=== PATIENT | male | born 1940 | race Caucasian/White ===

== ENCOUNTER 2017-08-10 16:56 | Inpatient (IN) | payer OTHER ==
[2017-08-10] VITALS (41 sets, daily range): BP systolic 66–144; BP diastolic 33–117
[~2017-08-10] VITALS: Ht 170.2 cm; Wt 64.0 kg
--- NOTE | ~2017-08-10 | EKG ---
[place] [address] [facility] [place] [address] ELECTROCARDIOGRAM REPORT Name: CRISTY REINA Room #: 240-P ADM IN M.R.#: [id number] Admission: 08/10/17 Attend Phys: Carlota Guzman MD Discharge: Date of : 38 Report #: [id number] THIS REPORT FOR: //name// [facility] ED Test Date: 2017-08-10 Test Time: 17:00:36 Pat Name: CRISTY REINA Department: Room: 240 Gender: M Touch Up Carver: YASMEEN : 1940 Requested By: Susannah Camejo Order Number: [id number] MD: Sami Martínez Measurements Intervals [place] Rate: 96 P: 0 CO: 59 QRS: 96 QRSD: 120 T: 269 QT: 445 QTc: 563 Interpretive Statements Ventricular-paced complexes Underlying rhythm is A. fib IVCD, consider atypical RBBB Nonspecific ST depression Compared to ECG 06/21/1990 16:41:00 ST (T wave) deviation now present Sinus rhythm no longer present Electronically Signed On 08-13-2017 12:16:01 CALENDERER by Sami Martínez [email or web address] <ELECTRONICALLY SIGNED> By: Sami Martínez MD 08/13/17 1216 1700 1700 Sami Martínez MD /EPI
--- NOTE | ~2017-08-10 | EKG ---
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 : 1940 Requested By: Susannah Camejo Order Number: [id number] MD: Sami Martínez Measurements Intervals [place] Rate: 156 P: 0 OK: 91 QRS: -54 QRSD: 185 T: 167 QT: 303 QTc: 488 Interpretive Statements Atrial fibrillation with rapid ventricular rate versus wide complex tachycardia right bundle branch block pattern Artifact in lead(s) I,III,aVR,aVL and baseline wander in lead(s) V5,V6 Compared to ECG 06/21/1990 16:41:00 Sinus rhythm no longer present Sinus arrhythmia no longer present Atrial abnormality no longer present T-wave abnormality no longer present Electronically Signed On 08-13-2017 12:18:20 MOLD MAKER APPRENTICE by Sami Martínez [email or web address] <ELECTRONICALLY SIGNED> By: Sami Martínez MD 08/13/17 1218 1746 1746 Sami Martínez MD /EPI
--- NOTE | ~2017-08-10 | H ---
[facility] [place] [address] HISTORY AND PHYSICAL Name: CRISTY REINA Room #: 240-P ADM IN M.R.#: [id number] Admission: 08/10/17 Attend Phys: Carlota Guzman MD Discharge: Date of : 39 Report #: [id number] THIS REPORT FOR: //name// CC: Carlota Guzman Greg Akkulugari DATE OF SERVICE: 08/10/2017 CHIEF COMPLAINT: Cardiac arrest outside of the hospital. HISTORY OF PRESENT ILLNESS: The patient is a 77-year-old man with a cardiac history, including history of coronary artery disease, status post CABG and cardiac stents, who apparently was at the group home. The patient became responsive earlier today. Code blue was called, and the patient had CPR, followed by defibrillation for ventricular fibrillation. The patient was given amiodarone. He was intubated other site. He was transferred here for further evaluation. The patient's blood pressure was 60 systolic on admission, before he received normal saline bolus. Currently, blood pressure is 100s. While in the Emergency Room, chest x-ray showed right perihilar infiltrate, as well as right lower lobe infiltrate, versus edema. White count is slightly elevated. INR is 9.1. The patient had a skin tear after chest compressions, and currently is bleeding. The patient is on Coumadin for chronic atrial fibrillation. PAST MEDICAL HISTORY: Coronary artery disease status post CABG, atrial fibrillation, status post pacemaker placement, history of colon cancer, no further details available. CURRENT MEDICATIONS: Per group home, the patient is on aspirin, Tylenol, Coumadin, theophylline, simvastatin, prednisone, potassium supplementation, omeprazole, metoprolol, [place], doxazosin, calcium carbonate. FAMILY HISTORY: Unable to obtain from the patient. Chart reviewed and not pertinent to the patient's current clinical condition. SOCIAL HISTORY: The patient is currently at the group home. Further details are not available. No smoking or drinking alcohol is reported. REVIEW OF SYSTEMS: Unable to obtain. The patient is currently intubated. PHYSICAL EXAMINATION: GENERAL: The patient is cachectic-appearing elderly man, who is intubated. He has spontaneous movements. He does not respond to his name. [address] [address] HISTORY AND PHYSICAL Name: CRISTY REINA Room #: [facility]note 2[facility] IN M.R.#: [id number] Admission: 08/10/17 Attend Phys: Carlota Guzman MD Discharge: Date of : 39 Report #: [id number] HEENT: Pupils are equal. Eye movements are present. JVD is not appreciated. NECK: The patient has no thyromegaly. CARDIOVASCULAR: The patient has distant S1 and S2. Heart rate is irregularly irregular. RESPIRATORY: The patient has diffusely coarse respiratory sounds. GASTROINTESTINAL: Abdomen is soft. The patient has PEG tube site, with minor drainage. Hepatomegaly or splenomegaly is not palpated. MUSCULOSKELETAL: The patient has 2+ pitting edema on lower extremities. No major joint deformities are appreciated. NEUROLOGIC: The patient is intubated, and severely lethargic, not responding to the painful stimuli. He has spontaneous movements present. SKIN: The patient has skin laceration of the chest and back, bleeding, from the chest compressions. He has multiple bruising on extremities. LABORATORY DATA: Electrolytes show sodium 146, potassium 1.7, chloride and bicarbonate are normal, creatinine 1.2, glucose 242, magnesium 1.6, calcium 6.8, troponin 1.13, BNP 6000, INR is 9.1. On CBC, white count is 12.5, hemoglobin is 7.9, hematocrit 25.8, platelets are 162. On ABG, pH is 7.449, pCO2 is 29, pO2 is 499. ASSESSMENT AND PLAN: 1. Cardiac arrest outside of the hospital. Status post defibrillation for ventricular fibrillation. Currently, the patient is in atrial fibrillation. He is intubated. Code ice to be initiated. Clearing Supervisor/critical care team and swing manager consultation is very much appreciated. 2. Coagulopathy due to Coumadin, the patient takes for atrial fibrillation. INR is 9.1. As noted, the patient is bleeding from skin laceration, that he sustained as a result of chest compressions. The patient is getting FFP, as well as vitamin K. CBC will be followed. Local skin care. 3. Respiratory failure. As noted, the patient is intubated. Management per sales coach. Help is appreciated. 4. Severe hypokalemia. The patient is getting IV potassium supplementation, that will be followed closely, and will be replaced as necessary. 5. Right lung infiltrate, likely pneumonia, aspiration versus healthcare associated. Broad spectrum antibiotics. 6. Sepsis due to above, with hypotension. Aggressive IV fluid hydration, blood cultures, and pressors if necessary. 7. Iatrogenic adrenal insufficiency. The patient's home medication list includes prednisone. Reason is unclear. This will be clarified later. In the meantime, the patient will be treated with stress doses of the steroids. 8. Elevated troponin, likely due to current illness. EKG shows no acute ST segment changes. Senior Planner is consulted. 9. Deep venous thrombosis prophylaxis and gastrointestinal prophylaxis. SCDs and famotidine, respectively. [facility] [address] [place] [address] HISTORY AND PHYSICAL Name: CRISTY REINA Room #: 240-P ADM IN M.R.#: [id number] Admission: 08/10/17 Attend Phys: Carlota Guzman MD Discharge: Date of : 39 Report #: [id number] I spent greater than 60 minutes in critical care. <ELECTRONICALLY SIGNED> By: Carlota Guzman MD 08/11/17 1604 1905 1919 Carlota Guzman MD /nt
--- NOTE | ~2017-08-10 | 2DMMODE ---
[facility] [address] [place] [address] 2 D/M-MODE ECHOCARDIOGRAM Name: CRISTY REINA Room #: 240-P [facility] IN .R.#: [id number] Admission: 08/10/17 Attend Phys: Carlota Guzman Discharge: Date of : 38 Date of Service: 08/11/17 0943 Report #: [id number] THIS REPORT FOR: //name// APPROVED REPORT Study performed: 08/11/2017 08:43:02 EXAM: Comprehensive 2D, Doppler, and color-flow Echocardiogram Patient Location: ICU Room #: 240 Status: routine BSA: 1.70 HR: 70 bpm BP: 98/69 mmHg Rhythm: Irregular Other Information Study Quality: Good/limited windows due to bandages Indications Status post cardiac arrest, mechanical aortic valve, CABG, pacemaker. 2D Dimensions RVDd: 39.07 mm LVEF(%): 15.20 (>50%) IVSd: 11.30 (7-11mm) LVOT Diam: 22.31 (18-24mm) LVDd: 53.86 mm PWd: 8.59 (7-11mm) LVDs: 50.15 (25-40mm) Aortic Root: 29.40 mm Head's LVEF: 15.20 % Volumes Left Atrial Volume (Systole) Single Plane 4CH: 137.67 mL Single Plane 2CH: 97.63 mL LA ESV Index: 79.00 mL/m2 Aortic Valve AoV Peak Aj.: 2.27 m/s AO Peak Gr.: 20.62 mmHg LVOT Max P.36 mmHg AO Mean Gr.: 13.42 mmHg AO V2 Mean: 1.77 m/s LVOT Max V: 0.76 m/s AO V2 VTI: 28.46 cm DOLLY Vmax: 1.31 cm2 [facility] [place] [address] [address] 2 D/M-MODE ECHOCARDIOGRAM Name: CRISTY REINA Room #: 240-[facility] IN .R.#: [id number] Admission: 08/10/17 Attend Phys: Carlota Guzman Discharge: Date of : 38 Date of Service: 08/11/17 0943 Report #: [id number] Mitral Valve MV Decel. Time: 156.32 ms MV E Max Aj.: 1.51 m/s Pulmonary Valve PV Peak Aj.: 0.59 m/s PV Peak Gr.: 1.41 mmHg Tricuspid Valve TR Peak Aj.: 2.73 m/s TR Peak Gr.: 29.87 mmHg Left Ventricle Left ventricle is dilated. There is normal left ventricular wall thickness. Left ventricular systolic function is moderate to severely decreased. Akinesis of base of inferior wall, mid-distal septum LVEF is 25-30%. This study is not technically sufficient to allow evaluation of the LV diastolic function. Right Ventricle The right ventricle is normal size. Right ventricle is hypokinetic. Atria Left atrium is dilated. Right atrium is dilated. Pacemaker lead is present in the right atrium. Aortic Valve Mechanical aortic valve is present. Peak pressure gradient of 19mmHg and mean pressure gradient of 13mmHg. Trace to mild aortic regurgitation. Mitral Valve Mitral valve leaflets are thickened. Severe mitral annular calcification. Moderate mitral regurgitation. Tricuspid Valve Moderate to severe tricuspid regurgitation. Estimated PAP is 30mmHg plus the right atrial pressure. Pulmonic Valve The pulmonary valve is normal in structure. Trace pulmonic regurgitation. Great Vessels The aortic root is normal in size. The ascending aorta is normal in [facility] [address] [place] [address] 2 D/M-MODE ECHOCARDIOGRAM Name: CRISTY REINA TESSY Room #: [address] [place] [address] IN ..#: [id number] Admission: 08/10/17 Attend Phys: Carlota Guzman Discharge: Date of : 38 Date of Service: 08/11/17 0943 Report #: [id number] size. IVC was not visualized. Pericardium There is no pericardial effusion. <Conclusion> Left ventricular systolic function is moderate to severely decreased. Akinesis of base of inferior wall, mid-distal septum LVEF is 25-30%. Both atria are dilated. Pacing wires in right heart Mechanical aortic valve is present. Peak pressure gradient of 19mmHg and mean pressure gradient of 13mmHg. Trace to mild aortic regurgitation. Mitral valve leaflets are thickened. Severe mitral annular calcification. Moderate mitral regurgitation. Severe tricuspid regurgitation. Estimated pulmonary artery pressure of 30mmHg plus the right atrial pressure. There is no pericardial effusion. <ELECTRONICALLY SIGNED> By: Brian Lu MD, [facility] 08/11/1743 2 Brian Lu MD, FAC /INF
--- NOTE | ~2017-08-10 | O ---
[facility] [place] [address] [address] [place] [address] OPERATIVE REPORT Name: CRISTY REINA Room #: 240-P [facility] IN M.R.#: [id number] Admission: 08/10/17 Attend Phys: Carlota Guzman MD Discharge: Date of : 39 Report #: [id number] THIS REPORT FOR: //name// CC: Carlota Guzman [facility] Akkulugari DATE OF SERVICE: 08/10/2017 CLINICAL HISTORY: A 77-year-old white male with cardiac arrest, now with profound hypotension. The patient is in need of a central line. PROCEDURE: Right femoral central line placed. DESCRIPTION OF PROCEDURE: Procedure was performed semi-urgently and under medical necessity. The right groin area was then cleansed with Betadine. I was able to feel the femoral pulse. There appeared to be a hard, tubular pulsatile mass, 1% lidocaine was used to locate the femoral vein next medial to the femoral pulse area. Then, an 18-gauge needle was then used to again locate the femoral vein. A guidewire was then placed through the needle. Needle was then withdrawn. A small blade was used for skin incision at the side of the guidewire. Then, a dilator was placed over the wire. The dilator was then removed. Then, a triple lumen was placed over the guidewire without difficulty. The 3 ports were then flushed with saline without difficulty. The right femoral area was then secured with 2-0 silk. Area was sterilely bandaged. No complications noted. <ELECTRONICALLY SIGNED> By: Juan José Gomez MD 08/11/17 1637 2305 2318 Juan José Gomez MD /nt
--- NOTE | ~2017-08-10 | HC ---
[facility] [place] [address] CONSULTATION Name: CRISTY REINA Room #: 240-P ADM IN M.R.#: [id number] Admission: 08/10/17 Attend Phys: Carlota Guzman MD Discharge: Date of : 39 Report #: [id number] THIS REPORT FOR: //name// CC: Carlota Martin TYPE OF REPORT: Infectious diseases consultation. REASON FOR CONSULTATION: I was asked to evaluate concerning Gram-positive bacteremia following out of hospital cardiac arrest. HISTORY OF PRESENT ILLNESS: The patient was a 77-year old with history of COPD, aortic valve replacement, atrial fibrillation with permanent pacemaker, coronary artery disease and anticoagulation. Has a history of colon cancer. He was residing at [facility]. Went into V-fib required resuscitation, was brought into the Emergency Room, intubated, now on pressors in the ICU, Levophed and norepinephrine and remains encephalopathic. He has had significant chest trauma from his resuscitation. Has previous gastrostomy tube, which was removed. 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 Still unclear to me why he was at [facility] other than just generalized debility. Blood cultures were drawn at admission showing gram-positive cocci. Further identification is pending. He has had minimal tracheal secretions. He has an indwelling Bustillos catheter with reasonable urine output. No reported diarrhea. REVIEW OF SYSTEMS: In addition to the above, he has a right IJ catheter in place. He has got a Port-A-Cath, longstanding, right chest; right femoral venous catheter in place; indwelling Bustillos catheter, oral intubation and multiple skin tears from his resuscitation. On an FiO2 of 40%. He has paced rhythm. ALLERGIES: PEMBROLIZUMAB. MEDICATIONS: As noted on his AUG, now on vancomycin and Zosyn. PAST MEDICAL HISTORY: Coronary artery bypass grafting, atrial fibrillation, sick sinus syndrome, permanent pacemaker placement, rheumatic fever, aortic valve disease, status post mechanical valve replacement, COPD, asthma, gastrocutaneous fistula, cholecystectomy and colon surgery for colon cancer. FAMILY HISTORY: Not available. SOCIAL HISTORY: Not available. PHYSICAL EXAMINATION: VITAL SIGNS: Afebrile, blood pressure adequate on 2 drips including Jose-Synephrine and Levophed and on FiO2 of 40%. GENERAL: He was encephalopathic but sedated on propofol. [facility] [address] [place] [address] CONSULTATION Name: CRISTY REINA Room #: 240-P [facility] IN M.R.#: [id number] Admission: 08/10/17 Attend Phys: Carlota Guzman MD Discharge: Date of : 39 Report #: [id number] HEENT: Eyes are unremarkable. He was pale. NECK: Supple. RESPIRATORY: He is breathing over the vent. Right IJ catheter site unremarkable. Right chest Port-A-Cath site unremarkable. Right femoral venous catheter site unremarkable had multiple skin tears to his anterior and posterior chest. Had crepitance to the right rib cage. Chest was coarse bilaterally. HEART: Regular, without murmur. ABDOMEN: Soft. 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 EXTREMITIES: A 2+ edema. Some mottling in his toes. Had effusions in both knees. LABORATORY STUDIES: Blood cultures showing Staph aureus, 2/2 cultures obtained. Presumptive methicillin-susceptible. Urine culture, no growth. Sputum culture pending. Sodium 142, potassium 3.3, bicarbonate of 19 and creatinine 1.4. AST 2302. Bilirubin normal. Alkaline phosphatase 185, ALT 1641, albumin 1.9 and lactate 6.8. INR 1.8. Hemoglobin 7.5; WBC 16.8; platelet count 152,000; 96% neutrophils and bands were initially 25% and now 0. MRSA screen negative. Urinalysis: Moderate wbc's, rbc's and few bacteria and moderate coarse granular casts. ABG on 40% FiO2 shows pO2 158, pCO2 of 27, pH 7.4 and lactate 5.6. RADIOLOGICAL DATA: Chest x-ray: Mild atelectasis in the lung bases with vascular congestion. IMPRESSION: A 77-year old with chronic obstructive pulmonary disease, cardiovascular disease, aortic valve replacement, fully anticoagulated with history of colon cancer. Unclear if he is without evidence of disease. Presents now with Staphylococcus aureus bacteremia, post-code from ventricular fibrillation with multisystem organ failure including encephalopathy, respiratory failure, possible non-Q-wave myocardial infarction with methicillin-susceptible Staphylococcus aureus bacteremia. Sources of his bacteremia would include central venous catheter versus possible endocarditis. 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 RECOMMENDATIONS: We will continue IV antibiotic therapy. Repeat his blood cultures. Check echocardiogram and continue full support pending further recommendations from family. <ELECTRONICALLY SIGNED> By: Chema Valerio MD 08/15/17 0844 0922 1027 Chema Valerio MD /nt
--- NOTE | ~2017-08-10 | HC ---
[facility] [place] [address] CONSULTATION Name: CRISTY REINA Room #: 240-P [facility] IN M.R.#: [id number] Admission: 08/10/17 Attend Phys: Carlota Guzman MD Discharge: Date of : 38 Report #: [id number] THIS REPORT FOR: //name// CC: Carlota Ambrosem Akkulugari DATE OF SERVICE: 08/10/2017 PULMONARY CONSULTATION REFERRAL PHYSICIAN: . REASON FOR REFERRAL: Acute hypoxic cardiac arrest. HISTORY OF PRESENT ILLNESS: The patient is a 77-year-old white male who was brought to the Emergency Room in apparent cardiac arrest. A pulmonary consultation was requested. The patient has an extensive medical history. He appears to have a history of aortic valve replacement, on chronic anticoagulation, atrial fibrillation, colon cancer, sick sinus syndrome, status post permanent pacemaker placement, seizure disorder, gastrocutaneous fistula, coronary artery undergoing 4-vessel bypass surgery, COPD, asthma, rheumatic fever along with failure to thrive. He was recently at [facility]. Earlier today, the patient was found to be unresponsive. CPR was given, 911 was called. When EMS arrived, the patient was found to be in ventricular fibrillation. He underwent cardioversion. Amiodarone along with epinephrine was given. The patient was also intubated en route. In the ER, the patient was hypotensive. Fluids were given along with vasopressors. Vital signs did improve. Cardiology has been consulted. At this time, no plans for intervention. He has been transferred to the ICU. While in the ICU, the patient became progressively hypotensive. His ventricular fibrillation and ventricular tachycardia recurred. The patient was given second dose of amiodarone. His INR on admission was markedly elevated. Vitamin K was given. It should be noted that the patient is oozing from his dermal abrasions around his chest and also his back from his CPR. Hemoglobin is 7.6. He was intubated with an 8 mm ET tube in the facility. At present, the patient moves extremities somewhat, but not responsive. [facility] [address] [place] [address] CONSULTATION Name: CRISTY REINA TESSY Room #: 240-P [facility] IN M.R.#: [id number] Admission: 08/10/17 Attend Phys: Carlota Guzman MD Discharge: Date of : 39 Report #: [id number] PAST MEDICAL HISTORY: As mentioned above. It is incomplete. We do not have medical records from other institutions where he was hospitalized. Records from the long term was reviewed. His other medical history includes colon surgery for colon cancer, cholecystectomy, hernia repair. ALLERGIES: UNKNOWN, QUESTIONABLE ALLERGY TO ARTHRITIS MEDICATIONS. MEDICATIONS: From the long term include hydrocodone, potassium supplements, prednisone 5 mg b.i.d., theophylline 300 mg b.i.d., Coumadin 5 mg once a day, niacin, vitamin C, Cardura, Toprol-XL, simvastatin, aspirin, Mucinex, iron supplements, omeprazole, Os-Jordan, Tylenol. FAMILY HISTORY: Unknown. SOCIAL HISTORY: Past history of tobacco use. No apparent alcohol history. Family is Family is available, but not present at this time. REVIEW OF SYSTEMS: Deferred as the patient is intubated. PHYSICAL EXAMINATION: GENERAL: He is somewhat responsive, moves some extremities, but somnolent. VITAL SIGNS: Temperature is 96 degrees axillary, pulse is 110, respiratory rate is 20, blood pressure 120/61 mmHg, saturations 100%. HEENT: Normocephalic, atraumatic. He is orally intubated. NECK: Supple, without lymphadenopathy or thyromegaly. CHEST: Breath sounds are fair. Few scattered crackles. No obvious wheezes. HEART: Difficult as the patient does have multiple bandages due to skin abrasions and bleeding. No obvious murmurs or gallop. Pulses are 2+/4+ bilaterally. ABDOMEN: Soft, no masses felt. The inguinal examination reveals hard, pulsatile mass felt in the right inguinal area. GENITOURINARY: Deferred. RECTAL: Deferred. EXTREMITIES: No cyanosis, clubbing, edema. NEUROLOGIC: The patient moves extremities somewhat, but not very responsive. MUSCULOSKELETAL: Notable for moderate muscle atrophy. DERMATOLOGIC: Shows multiple ecchymosis, some old with skin abrasions in the anterior chest and also the back from his recent CPR. LABORATORY DATA: Portable chest x-ray shows ET tube above the aldo approximately 2 cm up, though he was withdrawn from early chest x-ray, mild atelectases are seen in the bases. No consolidation or effusion seen. Mild cardiomegaly noted. Electrolytes: Sodium 146, potassium 1.7, chloride 107, CO2 [address] [address] CONSULTATION Name: CRISTY REINA Room #: 240-P [facility] IN M.R.#: [id number] Admission: 08/10/17 Attend Phys: Carlota Guzman MD Discharge: Date of : 39 Report #: [id number] 24, BUN is 20, creatinine is 1.2. Liver function enzymes are elevated. WBC 14,000, hemoglobin 7.0. No significant bandemia. Platelets are normal. INR on admission is 9.1. Followup is 5.0, magnesium 1.9. Troponin is 1.13. Arterial blood gas on admission revealed pH 7.44, pCO2 of 29, pO2 of 500 on FiO2 100%. Albumin 1.1, glucose 250. IMPRESSION: 1. Sudden cardiac in a 77-year-old white male with what appears to be extensive cardiac history. He was found to be in ventricular fibrillation. He now continues to have recurrent ventricular tachycardia, currently on amiodarone. Etiology, likely underlying coronary artery disease. Cardiology has been consulted. 2. Acute hypoxic respiratory failure secondary to above. 3. Profound hypokalemia. This may be the cause for the patient's ventricular fibrillation. He had been on diuretics in the long term. 4. On anticoagulation with supranormal INR. Agree that need to be concerned about possible central nervous system bleed with altered mental status. Vitamin K has been given. 5. History of mechanical aortic valve replacement, on anticoagulation as mentioned above. He will need to continue anticoagulation once stable. 6. Coronary artery disease, status post 4-vessel coronary bypass surgery in the past. 7. Profound hypotension, probably due to severe sepsis and/or underlying cardiogenic shock. Source of the severe sepsis may be in part related to his cardiac arrest resulting in systemic inflammatory response syndrome, acute infection is not clear at this time. 8. Acute blood loss anemia due to over-anticoagulation with visible bleeding from his skin abrasions. His hemoglobin has been downward trend with hypotension, would suggest transfusion to keep hemoglobin greater than 7. 9. Hypokalemia, probably corrected with profound hypoalbuminemia. 10. Severe protein calorie malnutrition with albumin 1.7 with severe cachexia. The patient was noted to be failure to thrive recently. 11. History of seizure disorder. Anti-seizure medications will need to be resumed once stable. 12. History of atrial fibrillation along with sick sinus syndrome, status post permanent pacemaker placement. 13. History of dysphagia, status post PEG tube placement. 14. History of gastrocutaneous fistula. 15. History of chronic obstructive pulmonary disease/asthma overlap syndrome. We will continue corticosteroids. On his medication list, it appears to be on chronic steroids. Agree with stress-dose steroids. Overall, the patient is critically ill with profound hypotension along with recurrent ventricular tachycardia and fibrillation. He has encephalopathy. Overall outlook appears to be poor. [facility] [address] [place] [address] CONSULTATION Name: CRISTY REINA Room #: 240-P [facility] IN .R.#: [id number] Admission: 08/10/17 Attend Phys: Carlota Guzman MD Discharge: Date of : 39 Report #: [id number] We will also need to obtain records from his past hospitalization regarding his cardiac history. We will continue mechanical ventilation, wean O2 for saturation 90%, try to decrease FiO2 to less than 60% if possible. Deep venous thrombosis and gastrointestinal prophylaxis will be addressed. Thank you for this consultation. Critical care 1 hour. <ELECTRONICALLY SIGNED> By: Juan José Gomez MD 08/11/17 1637 [id number] MD gemma Strickland
--- NOTE | ~2017-08-10 | HC ---
[facility] [place] [address] CONSULTATION Name: CRISTY REINA Room #: 240-P [facility] IN M.R.#: [id number] Admission: 08/10/17 Attend Phys: Carlota Guzman MD Discharge: Date of : 39 Report #: [id number] THIS REPORT FOR: //name// CC: Carlota Guzman Greg Akkulugari DATE OF SERVICE: 08/12/2017 CHIEF COMPLAINT: Multiple skin tears following cardiopulmonary arrest. HISTORY OF PRESENT ILLNESS: This is a 77-year-old male patient who is a [facility] resident. He apparently sustained cardiac arrest outside of the hospital. He has a history of coronary artery disease and previous coronary artery bypass graft surgery. He had become unresponsive, had CPR and defibrillation. He is now in the Intensive Care Unit, intubated, requiring mechanical ventilation and multiple pressor support. He has been hypotensive during a good portion of his stay. He had developed multiple skin tears likely following a CPR efforts administered to save his life. I have been asked to see him with regard to wound care. PAST MEDICAL HISTORY: Positive for coronary artery disease status post CABG, history of atrial fibrillation status post pacemaker placement, history of colon cancer. No additional details are available. SOCIAL HISTORY: Unknown. FAMILY HISTORY: Unknown. REVIEW OF SYSTEMS: Unobtainable due to the patient's unresponsiveness. CURRENT MEDICATIONS: Include Albuterol and Atrovent, amiodarone IV, epinephrine, famotidine, fentanyl, Lasix, levetiracetam, lorazepam, mag ox, magnesium sulfate, Solu-Medrol, metoprolol, midazolam, norepinephrine, phenylephrine, Zosyn, Diprivan, and vasopressin. ALLERGIES: To PEMBROLIZUMAB. PHYSICAL EXAMINATION: VITAL SIGNS: Include temperature 98.6, pulse 78, respiratory rate of 30, blood pressure of 110/73. GENERAL: This is a somewhat emaciated looking male patient who appears to be unresponsive. HEENT: Head normocephalic. Nose is clear. Mouth demonstrates endotracheal tube in place. NECK: Demonstrates ecchymosis. LUNGS: With clear breath sounds bilaterally. [facility] [address] [place] [address] CONSULTATION Name: CRISTY REINA Room #: 240-P [facility] IN M.R.#: [id number] Admission: 08/10/17 Attend Phys: Carlota Guzman MD Discharge: Date of : 39 Report #: [id number] HEART: Irregular murmur cannot be appreciated. ABDOMEN: Soft. There is a previous PEG tube site that appears to be draining slightly likely a gastrocutaneous fistula at this time. The patient's chest wall demonstrates ecchymosis and multiple skin tears across the chest wall anteriorly as well as in the posterior thorax as well. Examination of the abdomen is otherwise flat, soft and nontender. EXTREMITIES: Demonstrate skin tears to the right hand, to the left hand in the left pretibial region. CLINICAL IMPRESSION: 1. Multiple skin tears to the chest wall and posterior chest wall as well as right hand, left hand and left lower extremity following cardiopulmonary resuscitation due to cardiopulmonary arrest. 2. Coronary artery disease. 3. Severe protein-calorie malnutrition. 4. Aortic valve disease. 5. Atrial fibrillation. 6. Respiratory failure requiring mechanical ventilation following cardiopulmonary arrest. 7. History of chronic obstructive pulmonary disease. RECOMMENDATIONS: At this point in time, we will recommend a large bordered foam to be applied across the chest wall to be changed twice a week and as needed for soiling or displacement or saturation. Recommend zinc oxide cream to the posterior chest wall and otherwise be left open to air. We will use a skin adhesive on the left hand skin tear bordered foam on the left pretibial region on the right hand to be changed twice a week and as needed for soiling, displacement or saturation. He will need to frequent turning and repositioning. He will need aggressive nutritional support. I appreciate being asked to see him in consultation. <ELECTRONICALLY SIGNED> By: Ubaldo Gibson MD 08/15/17 1023 [id number] Ubaldo Gibson MD /nt
[~2017-08-10 16:56] MED LIST: APAP650 PO; ASPIRIN325 PO; CALCIUM 500 +1 EAC5 PO; CARDURA1 MG PO; COUMADIN 5 MG TA5 M1 PO; IRON325 PO; KLOR-CON 10 ER10 MEQ PO; METOPROLOL SUCC25 M1 PO; MUCINEX600 MG PO; NIACIN 500 MG500 M1 PO; NORCO 5-325 TA1 EACH PO; OMEPRAZOLE 20 M20 MG PO; PREDNISONE 5 MG5 M1 PO; SIMVASTATIN20 MG PO; THEOPHYLLINE S300 M1 PO; VITAMINC500 PO; VOSPIRE PO
[2017-08-10 17:27] LABS: HEMATOCRIT 25.8 % (42.0-52.0); HEMOGLOBIN 7.9 gm/dL (14.0-18.0); MCH 25.7 pg (26.0-34.0); MCHC 30.6 g/dL (28.0-37.0); MCV 83.8 fL (80.0-100.0); PLATELET COUNT 162 thou/uL (150-400); RBC 3.08 mil/uL (4.50-6.00); RDW 22.1 % (10.5-14.5); WBC 12.5 thou/uL (4.0-11.0)
[2017-08-10 17:47] LABS: ABSOLUTE NEUTROPHILS 11.8 thou/uL (1.4-8.2); ANISOCYTOSIS 1+; NUCLEATED RBCS 2 /100WBC
[2017-08-10 17:48] LABS: HYPOCHROMASIA SLIGHT; POLYCHROMASIA OCCASIONAL
[2017-08-10 17:50] LABS: APTT 76.5 Seconds (24.5-32.8); PROTIME 89.5 Seconds (9.3-11.4)
[2017-08-10 18:02] LABS: INR 9.1
[2017-08-10 18:14] LABS: FIBRINOGEN 170.9 mg/dL (210-360)
[2017-08-10 18:21] LABS: CALCIUM 6.8 mg/dL (8.5-10.1); CREATININE 1.2 mg/dL (0.7-1.3)
[2017-08-10 18:23] LABS: POTASSIUM 1.7 mmol/L (3.5-5.1)
[2017-08-10 18:24] LABS: CALCIUM 6.8 mg/dL (8.5-10.1); PHOSPHORUS 4.6 mg/dL (2.5-4.9)
[2017-08-10 18:24] LABS: BE(vivo) -3.1 mmol/L (-2 to +3); HCO3 20.2 mmol/L (22.0-26.0); PCO2 29.8 mmHg (35.0-45.0); PO2 499.3 mmHg (80.0-100.0); pH 7.449 (7.360-7.450); sO2 99.9 % (92.0-98.0)
[2017-08-10 18:42] LABS: D-DIMER > 35.20 ug/mLFEU (0.19-0.50)
[2017-08-10 18:43] LABS: TROPONIN-I 1.13 ng/mL (<0.06)
[2017-08-10 19:50] LABS: URINE BILIRUBIN NEGATIVE (Negative); URINE BLOOD 2+ (Negative); URINE CLARITY CLEAR; URINE COLOR YELLOW; URINE GLUCOSE-RANDOM* TRACE (Negative); URINE KETONES NEGATIVE (Negative); URINE LEUKOCYTES-REFLEX NEGATIVE (Negative); URINE NITRITE-REFLEX NEGATIVE (Negative); URINE PROTEIN (DIPSTICK) 2+ (Negative); URINE SPECIFIC GRAVITY 1.025 (1.005-1.035); URINE UROBILINOGEN 0.2 E.U./dl (0.2-1.0)
[2017-08-10 20:02] LABS: BACTERIA-REFLEX 1-9 Few /HPF (None Seen); COARSE GRANULAR CASTS 4-10 Moderate /LPF (None Seen); CRYSTALS None Seen /LPF (None Seen); FINE GRANULAR CASTS 0-3 Few /LPF (None Seen); SQUAMOUS 0-3 Few /LPF (0-3); WBC CLUMPS Few (None Seen)
[2017-08-10 20:38] LABS: HEMATOCRIT 22.6 % (42.0-52.0); HEMOGLOBIN 7.1 gm/dL (14.0-18.0); MCHC 31.5 g/dL (28.0-37.0); MCV 82.6 fL (80.0-100.0); RBC 2.74 mil/uL (4.50-6.00); RDW 22.4 % (10.5-14.5); WBC 11.9 thou/uL (4.0-11.0)
[2017-08-10 20:47] LABS: CALCIUM 6.5 mg/dL (8.5-10.1)
[2017-08-10 20:48] LABS: MAGNESIUM 1.9 mg/dL (1.8-2.4)
[2017-08-10 20:51] LABS: FIBRINOGEN 145.1 mg/dL (210-360); POTASSIUM 1.9 mmol/L (3.5-5.1); PROTIME 63.1 Seconds (9.3-11.4)
[2017-08-10 20:54] LABS: APTT 52.6 Seconds (24.5-32.8)
[2017-08-10 20:56] LABS: INR 6.4
[2017-08-10 22:01] LABS: HEMATOCRIT 22.5 % (42.0-52.0); MCH 25.5 pg (26.0-34.0); MCHC 31.2 g/dL (28.0-37.0); MCV 81.7 fL (80.0-100.0); RBC 2.75 mil/uL (4.50-6.00); RDW 22.1 % (10.5-14.5)
[2017-08-10 22:08] LABS: CALCIUM 6.2 mg/dL (8.5-10.1); MAGNESIUM 1.9 mg/dL (1.8-2.4)
[2017-08-10 22:10] LABS: POTASSIUM 2.1 mmol/L (3.5-5.1)
[2017-08-10 22:12] LABS: BE(vivo) -4.9 mmol/L (-2 to +3); HCO3 19.4 mmol/L (22.0-26.0); PCO2 32.6 mmHg (35.0-45.0); PO2 110.5 mmHg (80.0-100.0); pH 7.393 (7.360-7.450); sO2 98.1 % (92.0-98.0)
[2017-08-10 22:15] LABS: ALBUMIN 1.7 g/dL (3.4-5.0); DIRECT BILIRUBIN 0.3 mg/dL (<0.1-0.3); TOTAL BILIRUBIN 0.7 mg/dL (<0.1-1.0); TOTAL PROTEIN 4.2 g/dL (6.4-8.2)
[2017-08-10 22:18] LABS: FIBRINOGEN 142.5 mg/dL (210-360); PROTIME 49.5 Seconds (9.3-11.4)
[2017-08-11] VITALS (91 sets, daily range): BP systolic 73–128; BP diastolic 29–100
[2017-08-11] MEDS ORDERED: FOLTX TABLET1 EAC1 PO (04:02)
[2017-08-11] MEDS ORDERED: FOLIC ACID1 MG (04:02)
[2017-08-11] MEDS ORDERED: KEPPRA 500 MG500 M1 PO (04:05)
[2017-08-11] MEDS ORDERED: TRAMADOL 50 MG50 MG PO (04:12)
[2017-08-11] MEDS ORDERED: UNICOMPLEX M TA1 TA1 PO (04:14)
[2017-08-11] MEDS ORDERED: BENADRYL25 MG PO (04:14)
[2017-08-11] MEDS ORDERED: SENNA8.6 MG PO (04:16)
[2017-08-11 05:04] LABS: ALBUMIN 1.9 g/dL (3.4-5.0); CREATININE 1.1 mg/dL (0.7-1.3); POTASSIUM 3.6 mmol/L (3.5-5.1); TOTAL BILIRUBIN 1.3 mg/dL (<0.1-1.0); TOTAL PROTEIN 4.4 g/dL (6.4-8.2)
[2017-08-11 05:06] LABS: PROTIME 24.8 Seconds (9.3-11.4)
[2017-08-11 05:07] LABS: CALCIUM 5.9 mg/dL (8.5-10.1)
[2017-08-11 05:10] LABS: INR 2.5
[2017-08-11 05:26] LABS: HEMOGLOBIN 7.3 gm/dL (14.0-18.0)
[2017-08-11 05:29] LABS: HEMATOCRIT 23.4 % (42.0-52.0); MCH 26.4 pg (26.0-34.0); MCHC 31.2 g/dL (28.0-37.0); MCV 84.7 fL (80.0-100.0); PLATELET COUNT 193 thou/uL (150-400); RBC 2.76 mil/uL (4.50-6.00); RDW 20.4 % (10.5-14.5)
[2017-08-11 05:29] LABS: BE(vivo) -9.2 mmol/L (-2 to +3); HCO3 15.3 mmol/L (22.0-26.0); PCO2 27.9 mmHg (35.0-45.0); PO2 179.3 mmHg (80.0-100.0); pH 7.356 (7.360-7.450); sO2 99.2 % (92.0-98.0)
[2017-08-11 05:52] LABS: FIBRINOGEN 167.4 mg/dL (210-360)
[2017-08-11 06:01] LABS: D-DIMER > 35.20 ug/mLFEU (0.19-0.50)
[2017-08-11 07:00] LABS: ABSOLUTE NEUTROPHILS 13.2 thou/uL (1.4-8.2); ANISOCYTOSIS 2+; ATYPICAL LYMPHS 1 %; NUCLEATED RBCS 2 /100WBC
[2017-08-11 07:01] LABS: LARGE PLATELETS OCCASIONAL; POLYCHROMASIA 1+
[2017-08-11 09:37] LABS: MAGNESIUM 2.4 mg/dL (1.8-2.4)
[2017-08-11 19:14] LABS: BE(vivo) -12.6 mmol/L (-2 to +3); HCO3 12.9 mmol/L (22.0-26.0); PCO2 27.8 mmHg (35.0-45.0); PO2 142.2 mmHg (80.0-100.0); pH 7.283 (7.360-7.450); sO2 98.6 % (92.0-98.0)
[2017-08-11 19:23] LABS: HEMATOCRIT 23.8 % (42.0-52.0); HEMOGLOBIN 7.4 gm/dL (14.0-18.0); MCH 26.5 pg (26.0-34.0); MCHC 31.1 g/dL (28.0-37.0); MCV 85.2 fL (80.0-100.0); RBC 2.79 mil/uL (4.50-6.00); RDW 20.5 % (10.5-14.5); WBC 18.1 thou/uL (4.0-11.0)
[2017-08-11 22:20] LABS: ALBUMIN 1.9 g/dL (3.4-5.0); CALCIUM 6.7 mg/dL (8.5-10.1); CREATININE 1.3 mg/dL (0.7-1.3); POTASSIUM 3.4 mmol/L (3.5-5.1); TOTAL PROTEIN 4.6 g/dL (6.4-8.2)
[2017-08-11 23:16] LABS: BE(vivo) -8.1 mmol/L (-2 to +3); HCO3 15.7 mmol/L (22.0-26.0); PCO2 26.3 mmHg (35.0-45.0); PO2 160.7 mmHg (80.0-100.0); pH 7.395 (7.360-7.450); sO2 99.1 % (92.0-98.0)
[2017-08-12] VITALS (89 sets, daily range): BP systolic 51–136; BP diastolic 25–110
[2017-08-12 03:50] LABS: BE(vivo) -5.1 mmol/L (-2 to +3); HCO3 18.3 mmol/L (22.0-26.0); PCO2 27.9 mmHg (35.0-45.0); PO2 158.8 mmHg (80.0-100.0); pH 7.435 (7.360-7.450); sO2 99.1 % (92.0-98.0)
[2017-08-12 04:19] LABS: ABSOLUTE NEUTROPHILS 16.2 thou/uL (1.4-8.2); BASOPHILS 0.3 % (0.0-2.0); EOSINOPHILS 0.1 % (0.0-3.0); HEMATOCRIT 23.6 % (42.0-52.0); HEMOGLOBIN 7.5 gm/dL (14.0-18.0); MCH 26.4 pg (26.0-34.0); MCHC 31.7 g/dL (28.0-37.0); MCV 83.3 fL (80.0-100.0); MONOCYTES 2.4 % (1.0-8.0); PLATELET COUNT 152 thou/uL (150-400); POLYS 96.2 % (36.0-66.0); RBC 2.84 mil/uL (4.50-6.00); RDW 20.8 % (10.5-14.5); WBC 16.8 thou/uL (4.0-11.0)
[2017-08-12 04:28] LABS: CALCIUM 6.4 mg/dL (8.5-10.1); CREATININE 1.4 mg/dL (0.7-1.3); POTASSIUM 3.3 mmol/L (3.5-5.1)
[2017-08-12 04:32] LABS: INR 1.8; PROTIME 18.2 Seconds (9.3-11.4)
[2017-08-12 09:44] LABS: MAGNESIUM 2.2 mg/dL (1.8-2.4); POTASSIUM 3.7 mmol/L (3.5-5.1)
[2017-08-12 16:22] LABS: MAGNESIUM 1.9 mg/dL (1.8-2.4); POTASSIUM 3.2 mmol/L (3.5-5.1)
[2017-08-12 20:05] LABS: HEMATOCRIT 25.4 % (42.0-52.0); MCH 26.4 pg (26.0-34.0); MCHC 31.6 g/dL (28.0-37.0); MCV 83.6 fL (80.0-100.0); RBC 3.04 mil/uL (4.50-6.00); RDW 20.8 % (10.5-14.5); WBC 16.1 thou/uL (4.0-11.0)
[2017-08-12 20:15] LABS: CALCIUM 6.9 mg/dL (8.5-10.1); CREATININE 1.4 mg/dL (0.7-1.3); POTASSIUM 3.9 mmol/L (3.5-5.1)
[2017-08-12 20:20] LABS: APTT 36.2 Seconds (24.5-32.8); INR 1.8; PROTIME 18.1 Seconds (9.3-11.4)
[2017-08-12 20:29] LABS: ALBUMIN 1.8 g/dL (3.4-5.0); MAGNESIUM 1.8 mg/dL (1.8-2.4); TOTAL BILIRUBIN 1.2 mg/dL (<0.1-1.0); TOTAL PROTEIN 4.7 g/dL (6.4-8.2)
[2017-08-13] VITALS (72 sets, daily range): BP systolic 56–122; BP diastolic 30–101
[2017-08-13 02:37] LABS: ALBUMIN 1.7 g/dL (3.4-5.0); CALCIUM 6.5 mg/dL (8.5-10.1); CREATININE 1.4 mg/dL (0.7-1.3); POTASSIUM 3.5 mmol/L (3.5-5.1); TOTAL BILIRUBIN 1.3 mg/dL (<0.1-1.0); TOTAL PROTEIN 4.4 g/dL (6.4-8.2)
[2017-08-13 05:48] LABS: HEMOGLOBIN 7.8 gm/dL (14.0-18.0); PLATELET COUNT 120 thou/uL (150-400)
[2017-08-13 05:50] LABS: HEMATOCRIT 24.6 % (42.0-52.0); MCH 26.8 pg (26.0-34.0); MCHC 31.9 g/dL (28.0-37.0); MCV 83.8 fL (80.0-100.0); RBC 2.93 mil/uL (4.50-6.00); WBC 15.2 thou/uL (4.0-11.0)
[2017-08-13 05:57] LABS: INR 1.7
[2017-08-13 06:34] LABS: ABSOLUTE NEUTROPHILS 14.9 thou/uL (1.4-8.2); NUCLEATED RBCS 2 /100WBC
[2017-08-13 06:35] LABS: ANISOCYTOSIS 2+; OVALOCYTES FEW; POLYCHROMASIA SLIGHT
[2017-08-13 06:36] LABS: POIKILOCYTOSIS 1+
[2017-08-13 08:28] LABS: ALBUMIN 1.7 g/dL (3.4-5.0); CALCIUM 6.7 mg/dL (8.5-10.1); CREATININE 1.4 mg/dL (0.7-1.3); POTASSIUM 3.6 mmol/L (3.5-5.1); TOTAL BILIRUBIN 1.3 mg/dL (<0.1-1.0); TOTAL PROTEIN 4.5 g/dL (6.4-8.2)
[2017-08-13 10:58] LABS: HEMATOCRIT 24.7 % (42.0-52.0); HEMOGLOBIN 7.9 gm/dL (14.0-18.0); MCH 26.7 pg (26.0-34.0); MCV 83.3 fL (80.0-100.0); RBC 2.96 mil/uL (4.50-6.00); RDW 21.1 % (10.5-14.5); WBC 15.8 thou/uL (4.0-11.0)
[2017-08-13 11:47] LABS: BE(vivo) -3.5 mmol/L (-2 to +3); HCO3 19.8 mmol/L (22.0-26.0); PO2 112.8 mmHg (80.0-100.0); pH 7.452 (7.360-7.450); sO2 98.4 % (92.0-98.0)
[2017-08-14] VITALS (31 sets, daily range): BP systolic 73–116; BP diastolic 20–86
[2017-08-14 04:37] LABS: BE(vivo) -1.5 mmol/L (-2 to +3); HCO3 21.9 mmol/L (22.0-26.0); PCO2 31.5 mmHg (35.0-45.0); sO2 98.5 % (92.0-98.0)
[2017-08-14 05:14] LABS: PLATELET COUNT 101 thou/uL (150-400); WBC 17.3 thou/uL (4.0-11.0)
[2017-08-14 05:16] LABS: ABSOLUTE NEUTROPHILS 16.6 thou/uL (1.4-8.2); BASOPHILS 0.3 % (0.0-2.0); HEMATOCRIT 24.9 % (42.0-52.0); LYMPHOCYTES 0.7 % (24.0-44.0); MCH 27.1 pg (26.0-34.0); MCHC 32.2 g/dL (28.0-37.0); MCV 84.1 fL (80.0-100.0); MONOCYTES 2.6 % (1.0-8.0); POLYS 96.4 % (36.0-66.0); RBC 2.96 mil/uL (4.50-6.00)
[2017-08-14 05:22] LABS: CALCIUM 6.7 mg/dL (8.5-10.1); CREATININE 1.4 mg/dL (0.7-1.3); POTASSIUM 3.6 mmol/L (3.5-5.1)
[2017-08-14 05:32] LABS: INR 1.5; PROTIME 14.8 Seconds (9.3-11.4)
[2017-08-14 05:35] LABS: APTT 67.1 Seconds (24.5-32.8)
[2017-08-14 11:09] LABS: BE(vivo) -0.8 mmol/L (-2 to +3); HCO3 22.7 mmol/L (22.0-26.0); PCO2 32.4 mmHg (35.0-45.0); PO2 207.4 mmHg (80.0-100.0); pH 7.463 (7.360-7.450); sO2 99.5 % (92.0-98.0)
[2017-08-15] VITALS (35 sets, daily range): BP systolic 50–109; BP diastolic 24–73
[2017-08-15 05:55] LABS: INR 1.5; PROTIME 15.4 Seconds (9.3-11.4)
[2017-08-15 07:54] LABS: MAGNESIUM 1.5 mg/dL (1.8-2.4)
[2017-08-15 07:56] LABS: POTASSIUM 2.9 mmol/L (3.5-5.1)
[2017-08-15 09:36] LABS: CALCIUM 6.6 mg/dL (8.5-10.1); CREATININE 1.2 mg/dL (0.7-1.3); HEMATOCRIT 22.7 % (42.0-52.0)
[2017-08-15 09:38] LABS: MCH 26.4 pg (26.0-34.0); MCHC 30.9 g/dL (28.0-37.0); MCV 85.4 fL (80.0-100.0); PLATELET COUNT 93 thou/uL (150-400); RBC 2.66 mil/uL (4.50-6.00); RDW 22.4 % (10.5-14.5); WBC 18.5 thou/uL (4.0-11.0)
[2017-08-15 10:11] LABS: ABSOLUTE NEUTROPHILS 18.3 thou/uL (1.4-8.2); ANISOCYTOSIS 3+; BURR CELLS OCCASIONAL; NUCLEATED RBCS 2 /100WBC; OVALOCYTES 1+; POIKILOCYTOSIS 1+; POLYCHROMASIA 1+; TEARDROPS OCCASIONAL
== END 2017-08-16 11:10 | DRG 870 ==
LOC: ER 16:56 → EROBS 17:55 → ICU 17:55
PROVIDERS: Emergency Medicine; Internal Medicine; Internal Medicine Endocrinology, Diabetes & Metabolism; Internal Medicine Pulmonary Disease; Nurse Practitioner Acute Care; Nurse Practitioner Gerontology; Specialist
PROC: 5A1955Z Respiratory Ventilation, Greater than 96 Consecutive Hours (ICD-10-PCS; principal; 2017-08-10)
PROC: 0BH17EZ Insertion of Endotracheal Airway into Trachea, Via Natural or Artificial Opening (ICD-10-PCS; principal; 2017-08-10)
PROC: 02HV33Z Insertion of Infusion Device into Superior Vena Cava, Percutaneous Approach (ICD-10-PCS; 2017-08-10)
PROC: 30243L1 Transfusion of Nonautologous Fresh Plasma into Central Vein, Percutaneous Approach (ICD-10-PCS; 2017-08-10)
PROC: 30243K1 Transfusion of Nonautologous Frozen Plasma into Central Vein, Percutaneous Approach (ICD-10-PCS; 2017-08-10)
PROC: 30243N1 Transfusion of Nonautologous Red Blood Cells into Central Vein, Percutaneous Approach (ICD-10-PCS; 2017-08-10)
PROC: 5A12012 Performance of Cardiac Output, Single, Manual (ICD-10-PCS; 2017-08-10)
DX: A41.01 Sepsis due to Methicillin susceptible Staphylococcus aureus (principal); J18.9 Pneumonia, unspecified organism; I21.4 Non-ST elevation (NSTEMI) myocardial infarction; J96.01 Acute respiratory failure with hypoxia; E43 Unspecified severe protein-calorie malnutrition; G92 Toxic encephalopathy; K72.00 Acute and subacute hepatic failure without coma; R65.21 Severe sepsis with septic shock; J44.0 Chronic obstructive pulmonary disease with (acute) lower respiratory infection; D68.9 Coagulation defect, unspecified; E27.3 Drug-induced adrenocortical insufficiency; D62 Acute posthemorrhagic anemia; K31.6 Fistula of stomach and duodenum; N17.9 Acute kidney failure, unspecified; G93.1 Anoxic brain damage, not elsewhere classified; I50.20 Unspecified systolic (congestive) heart failure; E87.6 Hypokalemia; I49.5 Sick sinus syndrome; G40.909 Epilepsy, unspecified, not intractable, without status epilepticus; I25.10 Atherosclerotic heart disease of native coronary artery without angina pectoris; I25.5 Ischemic cardiomyopathy; I48.2 Chronic atrial fibrillation; E83.42 Hypomagnesemia; I95.9 Hypotension, unspecified; R73.9 Hyperglycemia, unspecified; I46.9 Cardiac arrest, cause unspecified; I49.01 Ventricular fibrillation; Z51.5 Encounter for palliative care; Z95.0 Presence of cardiac pacemaker; Z87.891 Personal history of nicotine dependence; Z79.01 Long term (current) use of anticoagulants; Z95.2 Presence of prosthetic heart valve; Z95.1 Presence of aortocoronary bypass graft; Z90.49 Acquired absence of other specified parts of digestive tract; Z79.899 Other long term (current) drug therapy; Z85.038 Personal history of other malignant neoplasm of large intestine; Z88.8 Allergy status to other drugs, medicaments and biological substances; Z68.22 Body mass index [BMI] 22.0-22.9, adult; Z95.5 Presence of coronary angioplasty implant and graft; Z93.1 Gastrostomy status; Z79.52 Long term (current) use of systemic steroids; Z66 Do not resuscitate
CPT/HCPCS: 10078; 27000